=== PATIENT | female | born 2005 | race Caucasian/White ===

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

== ENCOUNTER 2023-12-09 19:24 | Emergency (ER) | payer MEDICAID ==
[2023-12-09 19:33] VITALS: BP 155/106
[2023-12-09] MEDS: Albuterol 0.083% 2.5 MG/3 ML Neb Soln NEB ONE (20:07)
[2023-12-09] MEDS: Doxycycline Monohydrate 100 MG Cap PO ONE (21:57)
== END 2023-12-09 22:03 | disposition home or self-care (01) ==
LOC: DL.ED 19:24
DX: J18.9 Pneumonia, unspecified organism (principal); Z88.8 Allergy status to other drugs, medicaments and biological substances
CPT/HCPCS: 71046; 87428; 99285; A9270; J7613-GY